=== PATIENT | female | born 1960 | race Caucasian/White ===

== ENCOUNTER 2025-07-22 12:06 | Day surgery (SDC) | payer MEDICARE ==
[2025-07-22] VITALS (24 sets, daily range): BP systolic 92–182; BP diastolic 55–108
[~2025-07-22] VITALS: Ht 165.1 cm; Wt 78.8 kg
[2025-07-22] MEDS ORDERED: VENL25 PO (12:49)
[2025-07-22] MEDS ORDERED: OMEP20ER PO (12:50)
--- NOTE | 2025-07-22 16:01 | NUR ---
07/22/25 1601 Gilberto Malagon CONFIRMED AND REVIEWED H&P, MEDCICATIONS, ALLERGIES, MEDICAL HISTORY, RESPIRATORY HISTORY, VITAL SIGNS, 3-LEAD EKG, CONSENTS, AND PHYSICIAN ORDERS. PATIENT CONFIRMS NPO STATUS AND AGREES WITH SCHEDULED PROCEDURE. MONITOR INTACT WITH CONTINUOUS PULSE OXIMETRY, CAPNOGRAPHY, 3-LEAD EKG, INTERMITTENT BP. SUPPLEMENTAL O2 TO BE TITRATED THROUGHOUT PROCEDURE TO MAINTAIN O2 SATURATION ABOVE 90%. PATIENT DETERMINED TO BE ASA APPROPRIATE FOR PROPOFOL SEDATION PRIOR TO START OF PROCEDURE BY DR. HARRISON.
--- NOTE | 2025-07-22 17:13 | NUR ---
Discharge instructions reviewed with patient. Patient verbalizes understanding. Copy given to patient to take home. Patient States Post-Procedure ride home has been arranged. Discharged via wheelchair to private car for ride home.
== END 2025-07-22 23:00 | disposition home or self-care (01) ==
LOC: ORSCMMR 12:06 → ORD 14:00 → ORSCMMR 14:00
PROVIDERS: Family Medicine
PROC: 0DJD8ZZ Inspection of Lower Intestinal Tract, Via Natural or Artificial Opening Endoscopic (ICD-10-PCS; principal; 2025-07-22 14:00)
DX: Z12.11 Encounter for screening for malignant neoplasm of colon (principal); K64.1 Second degree hemorrhoids; Z86.0101 Personal history of adenomatous and serrated colon polyps; E78.2 Mixed hyperlipidemia; G47.33 Obstructive sleep apnea (adult) (pediatric); K21.9 Gastro-esophageal reflux disease without esophagitis; F32.A Depression, unspecified; Z79.899 Other long term (current) drug therapy
CPT/HCPCS: J2704; J7120